=== PATIENT | male | born 1975 | race Caucasian/White ===

== ENCOUNTER 2017-03-26 01:18 | Emergency (ER) ==
[2017-03-26 01:31] VITALS: BP 134/80; TEMP 96.8; BMI 29.5
[2017-03-26] MEDS ORDERED: MORPHINE 2 MG/ML SYRINGE IVP STA ×2 (01:53→02:54)
[2017-03-26] MEDS ORDERED: ZOFRAN 4 MG/2 ML IVP STA (01:53)
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
[2017-03-26] MEDS ORDERED: BOOSTRIX IM ONE (01:58)
[2017-03-26] MEDS ORDERED: SODIUM CHLORIDE 1,000 ML IV STA (02:03)
[2017-03-26] MEDS ORDERED: POLYSPORIN 0.9 GM PACKET TP STA ×2 (02:35→04:01)
--- NOTE | 2017-03-26 07:14 | DI ---
EXAM: Radiographs, left knee HISTORY: Initial presentation for left knee trauma. COMPARISON: None available. TECHNIQUE: Four views. FINDINGS: Bone mineralization is normal. There is no fracture or dislocation. The joint spaces ar e maintained. Soft tissue swelling and subcutaneous air seen over the distal medial femur. IMPRESSION: No fracture or dislocation.
--- NOTE | 2017-03-26 07:15 | DI ---
EXAM: Radiographs, left foot HISTORY: Initial presentation for left foot trauma. COMPARISON: None available. TECHNIQUE: Three views. FINDINGS: Bone mineralization is normal. There is no fracture or dislocation. The joint spaces ar e maintained. No focal soft tissue abnormality is seen. IMPRESSION: No fracture or dislocation.
--- NOTE | 2017-03-26 07:16 | DI ---
EXAM: Radiographs, right hand HISTORY: Initial presentation for right hand trauma. COMPARISON: None available. TECHNIQUE: Three views. FINDINGS: Bone mineralization is normal. There is no acute fracture or dislocation. Old ununited ulnar styloid fracture noted. The joint spaces are maintained. No focal soft tissue abnormality is seen. IMPRESSION: No acute fracture or dislocation.
--- NOTE | 2017-03-26 07:17 | DI ---
EXAM: Radiographs, left hand HISTORY: Initial presentation for left hand trauma. COMPARISON: None available. TECHNIQUE: Three views. FINDINGS: Bone mineralization is normal. There is no fracture or dislocation. The joint spaces ar e maintained. No focal soft tissue abnormality is seen. IMPRESSION: No fracture or dislocation.
== END 2017-03-26 04:04 | disposition home or self-care (01) ==
LOC: ED 01:18
DX: S80.212A Abrasion, left knee, initial encounter (principal); S69.92XA Unspecified injury of left wrist, hand and finger(s), initial encounter; V20.4XXA Motorcycle driver injured in collision with pedestrian or animal in traffic accident, initial encounter
CPT/HCPCS: 90471; 96361; 96374; 96375; 96376; 99283